=== PATIENT | female | born 1980 ===

== ENCOUNTER 2023-07-27 08:20 | Emergency (ER) | payer BC ==
[2023-07-27] MEDS: Aspirin 81 MG Tab.Chew PO ONE (08:34)
[2023-07-27] MEDS: Sodium Chloride 0.9% 1,000 ML IV ONE (08:35)
[2023-07-27 08:38] LABS: BASOPHILS ABSOLUTE AUTO 0.05 K/uL (0.00-0.20); BASOPHILS PERCENT AUTO 0.7 % (0.0-1.0); EOSINOPHILS ABSOLUTE AUTO 0.31 K/uL (0.00-0.45); EOSINOPHILS PERCENT AUTO 4.6 % (0.0-6.0); HEMATOCRIT 38.4 % (37.0-47.0); HEMOGLOBIN 13.6 g/dL (12.0-16.0); IMMATURE GRAN ABSOLUTE AUTO 0.01 K/uL (0.00-0.05); IMMATURE GRAN PERCENT AUTO 0.1 % (0.0-0.4); LYMPHOCYTES ABSOLUTE AUTO 1.88 K/uL (1.00-4.80); MEAN CORPUSCULAR HEMOGLOBIN 30.4 pg (28.0-32.0); MEAN CORPUSCULAR HGB CONC 35.4 g/dL (32.0-36.0); MEAN CORPUSCULAR VOLUME 85.9 fL (83.0-99.0); MEAN PLATELET VOLUME 8.7 fL (9.4-12.3); MONOCYTES ABSOLUTE AUTO 0.54 K/uL (0.00-0.80); NEUTROPHILS ABSOLUTE AUTO 3.93 K/uL (1.80-7.70); NEUTROPHILS PERCENT AUTO 58.6 % (41.0-71.0); PLATELET COUNT,PLT 299 K/uL (150-400); RED BLOOD CELL COUNT 4.47 M/uL (4.10-5.30); WHITE BLOOD CELL COUNT,WBC 6.72 K/uL (3.9-11.3)
[2023-07-27 09:13] LABS: A/G RATIO 0.8 (0.9-1.6); ALANINE AMINOTRANSFERASE,ALT 35 IU/L (14-63); ALBUMIN 3.6 g/dL (3.4-5.0); ALKALINE PHOSPHATASE 83 U/L (46-116); ASPARTATE AMNIOTRANSFERASE,AST 32 IU/L (15-37); BILIRUBIN TOTAL 0.3 mg/dL (0.2-1.0); BLOOD UREA NITROGEN,BUN 14 mg/dL (7.0-18.0); CALCIUM 8.9 mg/dL (8.5-10.1); CARBON DIOXIDE,CO2 28.2 mmol/L (21.0-32.0); CHLORIDE,CL 103 mmol/L (98-107); CREATININE 0.8 mg/dL (0.6-1.0); GLUCOSE RANDOM 129 mg/dL (74-106); MAGNESIUM 1.7 mg/dL (1.8-2.4); POTASSIUM,K 3.5 mmol/L (3.5-5.1); PROTEIN TOTAL,TP 8.1 g/dL (6.4-8.2); SODIUM,NA 141 mmol/L (136-145); TSH ULTRASENSITIVE 5.04 uIU/mL (0.36-3.74)
[2023-07-27 09:15] LABS: ESTIMATED GFR 95 mL/min (>60)
[2023-07-27] MEDS: Ketorolac 30 MG/ML SDV IVPUSH ONE (09:39)
== END 2023-07-27 09:44 | disposition home or self-care (01) ==
LOC: MW.ED 08:20
DX: R07.9 Chest pain, unspecified (principal); R94.6 Abnormal results of thyroid function studies; Z75.8 Other problems related to medical facilities and other health care; Z79.899 Other long term (current) drug therapy
CPT/HCPCS: 36415; 71045; 80053; 83735; 84443; 84484; 85025; 93005; 96361; 96374; 99285; A9270; J1885; J7030; 93010; 99284

== ENCOUNTER 2023-08-02 22:23 | Emergency (ER) | payer BC ==
[2023-08-03] MEDS: traMADol 50 MG Tab PO ONE (00:42)
[2023-08-03] MEDS: Ketorolac 30 MG/ML SDV IM ONE (00:43)
[2023-08-03] MEDS: Orphenadrine 60 MG/2 ML Inj IM ONE (00:43)
== END 2023-08-03 01:18 | disposition home or self-care (01) ==
LOC: MW.ED 22:23
DX: M43.6 Torticollis (principal); K21.9 Gastro-esophageal reflux disease without esophagitis; Z79.899 Other long term (current) drug therapy; Z75.8 Other problems related to medical facilities and other health care
CPT/HCPCS: 96372; 99283; A9270; J1885; J2360

== ENCOUNTER 2024-12-21 01:56 | Emergency (ER) | payer BC ==
[2024-12-21] MEDS: Ondansetron 4 MG/2 ML SDV IVPUSH ONE (02:50)
[2024-12-21 03:40] LABS: BASOPHILS ABSOLUTE AUTO 0.06 K/uL (0.00-0.20); BASOPHILS PERCENT AUTO 0.3 % (0.0-1.0); EOSINOPHILS ABSOLUTE AUTO 0.28 K/uL (0.00-0.45); EOSINOPHILS PERCENT AUTO 1.6 % (0.0-6.0); IMMATURE GRAN ABSOLUTE AUTO 0.05 K/uL (0.00-0.05); IMMATURE GRAN PERCENT AUTO 0.3 % (0.0-0.4); LYMPHOCYTES ABSOLUTE AUTO 2.05 K/uL (1.00-4.80); LYMPHOCYTES PERCENT AUTO 11.6 % (24.0-44.0); MEAN PLATELET VOLUME 9.0 fL (9.4-12.3); MONOCYTES ABSOLUTE AUTO 1.31 K/uL (0.00-0.80); MONOCYTES PERCENT AUTO 7.4 % (0.0-8.0); NEUTROPHILS ABSOLUTE AUTO 13.95 K/uL (1.80-7.70); NEUTROPHILS PERCENT AUTO 78.8 % (41.0-71.0); NRBC ABSOLUTE 0.00 K/uL (0.00-0.02); NRBC PERCENT 0.0 /100WBC (0.0-0.2); PLATELET COUNT,PLT 318 K/uL (150-400); RED BLOOD CELL COUNT 4.37 M/uL (4.10-5.30); WHITE BLOOD CELL COUNT,WBC 17.70 K/uL (3.9-11.3)
[2024-12-21 03:50] LABS: A/G RATIO 1.0 (0.9-1.6); ALANINE AMINOTRANSFERASE,ALT 30 IU/L (14-63); ASPARTATE AMNIOTRANSFERASE,AST 29 IU/L (15-37); BILIRUBIN TOTAL 0.2 mg/dL (0.2-1.0); BLOOD UREA NITROGEN,BUN 20 mg/dL (7.0-18.0); CARBON DIOXIDE,CO2 28.7 mmol/L (21.0-32.0); CHLORIDE,CL 105 mmol/L (98-107); CREATININE 0.8 mg/dL (0.6-1.0); GLUCOSE RANDOM 117 mg/dL (74-106); POTASSIUM,K 3.9 mmol/L (3.5-5.1); PROTEIN TOTAL,TP 7.6 g/dL (6.4-8.2); SODIUM,NA 144 mmol/L (136-145)
[2024-12-21 03:52] LABS: ESTIMATED GFR 94 mL/min (>60)
== END 2024-12-21 04:17 | disposition home or self-care (01) ==
LOC: MW.ED 01:56
DX: A05.9 Bacterial foodborne intoxication, unspecified (principal); K21.9 Gastro-esophageal reflux disease without esophagitis; Z79.899 Other long term (current) drug therapy
CPT/HCPCS: 36415; 80053; 85025; 96361; 96374; 99284; A9270; J2405; J7030; 99283